=== PATIENT | female | born 1985 | race Hispanic/Latino ===

== ENCOUNTER 2018-10-26 11:26 | Observation (INO) | payer MEDICAID ==
[~2018-10-26] VITALS: Ht 160 cm; Wt 61.7 kg
[2018-10-26] MEDS ORDERED: ACETAMINOPHEN 325 MG TAB ONE (11:54)
[2018-10-26 14:15] LABS: APPEARANCE,URINE Clear (CLEAR); BILIRUBIN,URINE Negative (NEGATIVE); COLOR,URINE Yellow (YELLOW); GLUCOSE, URINE (UA) Negative (NEGATIVE); KETONES,URINE Trace mg/dL (NEGATIVE); LEUKOCYTE ESTERASE ,URINE Negative (NEGATIVE); NITRATE,URINE Negative (NEGATIVE); OCCULT BLOOD,URINE Negative (NEGATIVE); PH,URINE 7.5 (5.0-8.0); PROTEIN,URINE Negative (NEGATIVE)
[2018-10-26 14:17] LABS: AMPHET/METH SCREEN,URINE NEGATIVE (NEGATIVE); BARBITURATE SCREEN, URINE NEGATIVE (NEGATIVE); BENZODIAZEPINES SCREEN,URINE NEGATIVE (NEGATIVE); CANNABINOID SCREEN,URINE NEGATIVE (NEGATIVE); COCAINE SCREEN,URINE NEGATIVE (NEGATIVE); OPIATE SCREEN,URINE NEGATIVE (NEGATIVE); PHENCYCLIDINE SCREEN,URINE NEGATIVE (NEGATIVE)
[2018-10-26 15:50] VITALS: BP 129/71
== END 2018-10-26 15:55 | disposition home or self-care (01) ==
LOC: EDH 11:26 → LDH 13:38
PROVIDERS: ADMIT Obstetrics & Gynecology; ATTEND Obstetrics & Gynecology
DX: O9A.213 Injury, poisoning and certain other consequences of external causes complicating pregnancy, third trimester (principal); S93.491A Sprain of other ligament of right ankle, initial encounter; S80.212A Abrasion, left knee, initial encounter; O26.853 Spotting complicating pregnancy, third trimester; Z3A.31 31 weeks gestation of pregnancy; W10.9XXA Fall (on) (from) unspecified stairs and steps, initial encounter; Y93.89 Activity, other specified; Y92.89 Other specified places as the place of occurrence of the external cause; Y99.8 Other external cause status
CPT/HCPCS: 73600; 76805; 80305; 81003; 99284; G0378 ×2; J7120; 96360; 96361

== ENCOUNTER 2019-01-17 22:01 | Emergency (ER) | payer MEDICAID ==
[2019-01-17] MEDS ORDERED: KETOROLAC TROMETHAMINE 60 MG/2 ML VIAL ONE (22:42)
[2019-01-17] MEDS ORDERED: LIDOCAINE 5% TOPICAL PATCH TP ONE (22:42)
[2019-01-17 22:58] LABS: APPEARANCE,URINE Clear (CLEAR); BILIRUBIN,URINE Negative (NEGATIVE); COLOR,URINE Yellow (YELLOW); GLUCOSE, URINE (UA) Negative (NEGATIVE); KETONES,URINE Negative (NEGATIVE); LEUKOCYTE ESTERASE ,URINE Trace (NEGATIVE); NITRATE,URINE Negative (NEGATIVE); OCCULT BLOOD,URINE Large (NEGATIVE); PROTEIN,URINE Negative (NEGATIVE)
[2019-01-17 23:14] LABS: BACTERIA,URINE None Seen /HPF (None Seen); MUCUS,URINE Rare LPF (None Seen); SQUAMOUS EPITHELIAL CELL,UR Rare /HPF (0-2); WBC,URINE 0-1 /HPF (0-1)
== END 2019-01-17 22:58 | disposition home or self-care (01) ==
LOC: EDH 22:01
DX: G44.209 Tension-type headache, unspecified, not intractable (principal); M54.6 Pain in thoracic spine; M62.838 Other muscle spasm; Z98.890 Other specified postprocedural states
CPT/HCPCS: 81001; 96372; 99283; J1885

== ENCOUNTER 2021-10-25 17:49 | Emergency (ER) | payer BC, MEDICAID ==
[~2021-10-25] VITALS: Ht 160 cm; Wt 57.2 kg
[2021-10-25 18:01] VITALS: BP 137/81
[2021-10-25] MEDS ORDERED: DIAZ5TAB PO (18:07)
[2021-10-25] MEDS ORDERED: KETO10 PO (18:07)
[2021-10-25] MEDS ORDERED: KETOROLAC 60 MG VIAL (30MG/ML) IM ONE ×2 (18:08→18:30)
== END 2021-10-25 18:18 | disposition home or self-care (01) ==
LOC: EDH 17:49
DX: M43.6 Torticollis (principal); Z98.890 Other specified postprocedural states
CPT/HCPCS: J1885